=== PATIENT | female | born 1970 | race Caucasian/White ===

== ENCOUNTER → 2020-04-12 | Outpatient (CLI) | payer OTHER | END | disposition home or self-care (01) | LOC: RADMAMWWP 14:07 | DX: Z53.9 Procedure and treatment not carried out, unspecified reason (principal) ==

== ENCOUNTER → 2022-01-31 | Outpatient (CLI) | payer OTHER ==
--- NOTE | 2022-02-01 20:13 | MM ---
Reason for Exam: Screening (asymptomatic). Last mammogram was performed 4 year(s) and 6 month(s) ago. Patient History: Menarche at age 14. Postmenopausal. 10/17/2017, High risk Core Biopsy on the right side. 10/17/2017, High risk Core Biopsy on the right side. Risk Values: Nohemy 5 year model risk: 1.0%. NCI Lifetime model risk: 8.5%. Prior Study Comparison: 10/19/2010 Bilateral Screening Mammogram, [facility]. 08/20/2012 Bilateral Screening Mammogram, [facility]. 07/31/2013 Bilateral Diagnostic Mammogram, [facility]. 07/24/2017 Bilateral Screening Mammogram, [facility]. 09/03/2017 Right Diagnostic Mammogram, [facility]. Tissue Density: The breast tissue is heterogeneously dense. This may lower the sensitivity of mammography. Findings: Analyzed By CAD. There is no suspicious group of microcalcifications or new suspicious mass in either breast. There are benign bilateral vascular calcifications. No significant change from prior exams. Overall Assessment: Benign, BI-RAD 2 Management: Screening Mammogram of both breasts in 1 year. 1. Patient should continue monthly self breast exams. 2. A clinical breast exam by your physician is recommended on an annual basis. 3. This exam should not preclude additional follow-up of suspicious palpable abnormalities. Electronically signed and approved by: rTenton Cormier M.D. Radiologist
== END | disposition home or self-care (01) ==
LOC: RADMAMWWP 08:26
PROVIDERS: ATTEND Family Medicine
DX: Z12.31 Encounter for screening mammogram for malignant neoplasm of breast (principal); Z78.0 Asymptomatic menopausal state; Z98.890 Other specified postprocedural states
CPT/HCPCS: 77063; 77067

== ENCOUNTER 2023-06-11 10:11 | Day surgery (SDC) | payer OTHER ==
[~2023-06-11 10:11] MED LIST: LACTATED RINGERS 1,000 ML IV SCH; LIDOCAINE 1% (10MG/ML) FOR IV START INTRADERMA PRN
[2023-06-11 10:44] LABS: Glucose,Whole Blood 135 mg/dL (70-110)
[2023-06-11 10:45] VITALS: RESP 16; TEMP 97
[2023-06-11] MEDS ORDERED: PROPOFOL 10 MG/ML 20 ML VIAL IV ONE (10:46)
[2023-06-11] MEDS ORDERED: LIDOCAINE 1% INJ 10MG/ML (20 ML MDV) ONE (10:46)
--- NOTE | 2023-06-11 10:47 | P.GSHP ---
History of Present Illness H&P Date: 06/11/23 Chief Complaint: Colon cancer screening 52-year-old female here for colonoscopy. She has not had one before. No bowel complaints. No family history of colon cancer. Past Medical History Past Medical History: Fibromyalgia, Hyperlipidemia, Hypertension, Rheumatoid Arthritis (RA) Additional Past Medical History / Comment(s): bulging disc 1-5. History of Any Multi-Drug Resistant Organisms: None Reported Past Surgical History: Cholecystectomy, Hernia Repair, Tubal Ligation Additional Past Surgical History / Comment(s): right breast lumpectomy. Past Anesthesia/Blood Transfusion Reactions: No Reported Reaction Past Psychological History: ADD/ADHD, Depression Past Alcohol Use History: None Reported Past Drug Use History: None Reported Medications and Allergies Home Medications Medication Instructions Recorded Confirmed Type Aspirin [Adult Low Dose Aspirin EC] 81 mg PO DAILY 10/10/17 04/22/23 History Dextroamphetamine/Amphetamine 30 mg PO BID 10/10/17 04/22/23 History [Adderall] Gabapentin [Neurontin] 100 mg PO BID 10/10/17 04/22/23 History Milnacipran HCl [Savella] 100 mg PO BID 10/17/17 04/22/23 History Multivitamins, Thera [Multivitamin 1 tab PO DAILY 10/17/17 04/22/23 History (formulary)] Omeprazole [PriLOSEC] 20 mg PO AC-BID 10/17/17 04/22/23 History Cholecalciferol [Vitamin D3] 500 unit PO DAILY 01/24/18 04/22/23 History Empagliflozin [Jardiance] 25 mg PO DAILY 04/22/23 04/22/23 History Tapentadol HCl [Nucynta] 100 mg PO Q4H PRN 04/22/23 04/22/23 History lisinopriL [Prinivil] 10 mg PO QAM 04/22/23 04/22/23 History Allergies Allergy/AdvReac Type Severity Reaction Status Date / Time No Known Allergies Allergy Verified 06/11/23 10:26 Surgical - Exam Vital Signs Temp Pulse Resp BP Pulse Ox 97.0 F L 124 H 16 170/97 97 06/11/23 10:38 06/11/23 10:38 06/11/23 10:38 06/11/23 10:38 06/11/23 10:38 Physical exam: General: Well-developed, well-nourished HEENT: Normocephalic, sclerae nonicteric Abdomen: Nontender, nondistended Extremities: No edema Neuro: Alert and oriented Results - Labs Abnormal Lab Results - Last 24 Hours (Table) 06/11/23 Range/Units 10:43 POC Glucose (mg/dL) 135 H (70-110) mg/dL Assessment and Plan (1) Colon cancer screening Narrative/Plan: Will proceed with colonoscopy at this time. Current Visit: Yes Status: Acute Code(s): Z12.11 - ENCOUNTER FOR SCREENING FOR MALIGNANT NEOPLASM OF COLON SNOMED Code(s): 407288378
--- NOTE | 2023-06-11 11:01 | P.PCN ---
Date of Procedure: 06/11/23 Procedure(s) Performed: PREOPERATIVE DIAGNOSIS: Colon cancer screening POSTOPERATIVE DIAGNOSIS: Normal exam PROCEDURE: Colonoscopy ANESTHESIA: MAC SURGEON: Reese Donovan M.D. SPECIMENS: None ENDOSCOPIC PROCEDURE: The patient was placed on the endoscopy table in the left decubitus position. The Olympus colonoscope was inserted into the anus and passed under direct visualization to the base of the cecum. The appendiceal orifice was visualized. From that point the scope was slowly withdrawn inspecti ng all surfaces carefully. There were no neoplastic inflammatory or polypoid lesions throughout the cecum, ascending, transverse, descending, sigmoid and rectum. There was no visible diverticulosis noted. Digital rectal examination was normal. The patient was taken to the recovery room in stable condition per anesthesia guidelines. RECOMMENDATIONS: Resume diet. Repeat colonoscopy 10 years.
[2023-06-11 11:13] VITALS: PULSE 104
[2023-06-11 11:42] VITALS: BP 133/82
== END 2023-06-11 11:51 | disposition home or self-care (01) ==
LOC: ORWHC2ENDO 10:11
PROVIDERS: ATTEND Surgery
DX: Z12.11 Encounter for screening for malignant neoplasm of colon (principal); E78.5 Hyperlipidemia, unspecified; I10 Essential (primary) hypertension; M06.9 Rheumatoid arthritis, unspecified; M79.7 Fibromyalgia; F41.9 Anxiety disorder, unspecified; F32.A Depression, unspecified; F90.9 Attention-deficit hyperactivity disorder, unspecified type; Z79.84 Long term (current) use of oral hypoglycemic drugs; Z90.49 Acquired absence of other specified parts of digestive tract; Z79.899 Other long term (current) drug therapy
CPT/HCPCS: 45378; J2001; J2704

== ENCOUNTER → 2023-06-18 | Outpatient (CLI) | payer OTHER ==
--- NOTE | 2023-06-19 10:36 | MM ---
Reason for Exam: Screening (asymptomatic). Last mammogram was performed 1 year(s) and 5 month(s) ago. Patient History: Menarche at age 14. First Full-Term at age 14. Postmenopausal. 10/17/2017, High risk Core Biopsy on the right side. 10/17/2017, High risk Core Biopsy on the right side. Risk Values: Nohemy 5 year model risk: 1.1%. NCI Lifetime model risk: 8.4%. Prior Study Comparison: 07/31/2013 Bilateral Diagnostic Mammogram, [facility]. 07/24/2017 Bilateral Screening Mammogram, [facility]. 09/03/2017 Right Diagnostic Mammogram, [facility]. 01/31/2022 Bilateral MG 3D screening mammo w/cad, [facility]. Tissue Density: There are scattered fibroglandular densities. Findings: Analyzed By CAD. There is no suspicious group of microcalcifications or new suspicious mass. Benign-appearing calcifications bilaterally. Overall Assessment: Benign, BI-RAD 2 Management: Screening Mammogram of both breasts in [address] [facility] will attempt to contact patient to return for supplemental views and ultrasound if indicated. Patient should continue monthly self-breast exams. A clinical breast exam by your physician is recommended on an annual basis. This exam should not preclude additional follow-up of suspicious palpable abnormalities. Note on Nohemy scores and lifetime risk: 1. A Nohemy score greater than 3% is considered moderate risk. If this is the case, consider specialist referral to assess eligibility for a risk reducing agent. 2. If overall lifetime risk for the development of breast cancer is 20% or higher, the patient may qualify for future screening with alternating mammogram and breast MRI. Electronically signed and approved by: Thien Nielson DO
== END | disposition home or self-care (01) ==
LOC: RADMAMWWP 07:05
PROVIDERS: ATTEND Family Medicine
DX: Z12.31 Encounter for screening mammogram for malignant neoplasm of breast (principal); Z78.0 Asymptomatic menopausal state
CPT/HCPCS: 77067